=== PATIENT | female | born 2000 | race Caucasian/White ===

== ENCOUNTER 2022-06-14 08:00 | Outpatient (CLI) | payer MEDICAID ==
[2022-06-14 22:40] LABS: BACTERIAL VAGINOSIS DNA NEGATIVE (NEGATIVE); CANDIDA GROUP DNA NEGATIVE (NEGATIVE); CANDIDA KRUSEI DNA NEGATIVE (NEGATIVE); TRICHOMONAS VAGINALIS DNA NEGATIVE (NEGATIVE)
[2022-06-14 22:41] LABS: CANDIDA GLABRATA DNA NEGATIVE (NEGATIVE)
[2022-06-14 23:50] LABS: CHLAMYDIA TRACHOMATIS DNA NEGATIVE (NEGATIVE); NEISSERIA GONORRHOEAE DNA NEGATIVE (NEGATIVE)
== END 2022-06-14 23:59 | disposition home or self-care (01) ==
LOC: LAB.N 08:00
PROVIDERS: ATTEND Nurse Practitioner
DX: S30.202A Contusion of unspecified external genital organ, female, initial encounter (principal)
CPT/HCPCS: 81514; 87491; 87591; 87661

== ENCOUNTER 2022-06-16 09:00 | Outpatient (CLI) | payer MEDICAID ==
[2022-06-18 09:08] LABS: HCV AB <0.1 s/co ratio (0.0-0.9)
[2022-06-18 11:09] LABS: HIV SCREEN 4TH GENERATION Non Reactive (Non Reactive)
[2022-06-19 06:09] LABS: RPR Non Reactive (Non Reactive)
== END 2022-06-16 09:01 | disposition home or self-care (01) ==
LOC: LAB.N 09:00
PROVIDERS: ATTEND Nurse Practitioner
DX: S30.202A Contusion of unspecified external genital organ, female, initial encounter (principal)
CPT/HCPCS: 81599; 86592; 86694; 86695; 86696; 86803; 87389

== ENCOUNTER 2022-08-17 08:00 | Outpatient (CLI) | payer MEDICAID ==
[2022-08-17 21:08] LABS: BACTERIAL VAGINOSIS DNA POSITIVE (NEGATIVE); CANDIDA GLABRATA DNA NEGATIVE (NEGATIVE); CANDIDA GROUP DNA NEGATIVE (NEGATIVE); CANDIDA KRUSEI DNA NEGATIVE (NEGATIVE); TRICHOMONAS VAGINALIS DNA NEGATIVE (NEGATIVE)
[2022-08-17 22:26] LABS: CHLAMYDIA TRACHOMATIS DNA NEGATIVE (NEGATIVE); NEISSERIA GONORRHOEAE DNA NEGATIVE (NEGATIVE)
== END 2022-08-17 23:59 | disposition home or self-care (01) ==
LOC: LAB.N 08:00
PROVIDERS: ATTEND Nurse Practitioner
DX: N75.1 Abscess of Bartholin's gland (principal); Z11.3 Encounter for screening for infections with a predominantly sexual mode of transmission
CPT/HCPCS: 81514; 87070; 87205; 87491; 87591; 87661

== ENCOUNTER 2022-08-18 08:00 | Outpatient (CLI) | payer MEDICAID ==
[2022-08-20 05:07] LABS: HCV AB <0.1 s/co ratio (0.0-0.9)
[2022-08-20 09:08] LABS: HSV 1 IGG TYPE SPEC <0.91 index (0.00-0.90); HSV 2 IGG TYPE SPEC <0.91 index (0.00-0.90)
[2022-08-20 10:08] LABS: HIV SCREEN 4TH GENERATION Non Reactive (Non Reactive)
[2022-08-21 04:08] LABS: RPR Non Reactive (Non Reactive)
== END 2022-08-18 23:59 | disposition home or self-care (01) ==
LOC: LAB.N 08:00
PROVIDERS: ATTEND Nurse Practitioner
DX: Z11.3 Encounter for screening for infections with a predominantly sexual mode of transmission (principal)
CPT/HCPCS: 36415; 86592; 86695; 86696; 86803; 87389

== ENCOUNTER 2022-08-25 16:12 | Emergency (ER) | payer MEDICAID ==
[2022-08-25] MEDS ORDERED: LIDOCAINE 1%-EPI 1:100000 20 ML MDV SUBQ STA (19:56)
[2022-08-25] MEDS ORDERED: oxyCODONE/ACET 5/325 Prepack 4 PO STA (20:56)
--- NOTE | 2022-08-25 21:17 | ED Physician Documentation ---
PD HPI FEMALE - Stated complaint Stated Complaint: FEMALE /CYST - Chief complaint Chief Complaint: Wound - History obtained from History obtained from: Patient - Additional information Additional information: Patient is a 22-year-old presenting for evaluation of a left Bartholin's abscess which is been present for 2 weeks. She has been to the walk-in clinic twice and had it lanced twice, most recently a few days ago. She reports however the swelling has again increased.Patient states that with both attempts there was no probing of the abscess and they made a quick openings and that was it. She has not ever had a catheter placed into the abscess.She has been on Bactrim. She was [facility] but the referral was denied as they do not take her insurance.She denies a history of having this previously. She denies fevers, chest pain, difficulty breathing, abdominal pain, dysuria, vaginal bleeding or discharge. 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 Other Past Medical History: Bartholin cysts - Past Surgical History Past Surgical History: No - Allergies Allergies/Adverse Reactions: Allergies Allergy/AdvReac Type Severity Reaction Status Date / Time No Known Drug Allergies Allergy Verified 08/25/22 17:19 - Social History Does the pt smoke?: Yes Smoking Status: Current every day smoker Does the pt drink ETOH?: Yes ETOH Use: Wine, Beer, Liquor Does the pt have substance abuse?: No - Immunizations Immunizations are current?: Yes - POLST Patient has POLST: No PD ED PE NORMAL - General General: Alert and oriented X 3, No acute distress, Well developed/nourished - HEENT HEENT: Atraumatic - Neck Neck: Supple, no meningeal sign - Cardiac Cardiac: RRR, No murmur - Respiratory Respiratory: No respiratory distress, Clear bilaterally - Abdomen Abdomen: Soft, Non tender - Female 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, 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), Other (Left-sided Bartholin's abscess) - Derm Derm: Warm and dry Results - Vitals Vitals: Vital Signs - 24 hr 12/12/1208/25/22 08/25/22 17:15 19:17 20:11 Temperature 36.3 C L 37.2 C Heart Rate 66 83 82 Respiratory 16 16 16 Rate Blood Pressure 112/58 L 106/60 124/84 H O2 Saturation 100 100 100 08/25/22 21:23 Temperature 36.5 C Heart Rate 86 Respiratory 16 Rate Blood Pressure 132/79 H O2 Saturation 100 Oxygen O2 Source Room air Procedures - Abscess I&D (location) Left Bartholin's Preparation: Betadine, Lidocaine 1% Incision: Incised with scalpel, Purulent drainage, Loculations broken, Other Other: Pt tolerated well PD MEDICAL DECISION MAKING - ED course Complexity details: re-evaluated patient ED course: Patient with left Bartholin's abscess which has recurred despite 2 attempts at I&D at walk-in clinic.Patient gave verbal consent for drainage.Successful I&D with placement of Word catheter. Patient counseled to continue with her antibiotics and follow-up with either walk-in clinic or ER if she is not able to get in with gynecology as needed.Patient counseled on concerning symptoms to return for. Departure - Departure Disposition: 01 Home, Self Care Clinical Impression: Bartholin's gland abscess Condition: Stable Instructions: ED Bartholins Cyst IandD Comments: We have drained your Bartholin's abscess and placed a small catheter. This catheter may fall out on its own which is fine.If it is still present in 3 days then please return to the walk-in clinic or to the ER to have it removed and for recheck. If any worsening symptoms prior to that please consider being seen. Please continue with the antibiotic that you were started on. I given you a small amount of pain medication. Please use this only when needed. I would recommend a stool softener with it as it can be constipating. I would also recommend looking for a gynecology office that will accept your insurance for follow-up. I am prescribing a short course of narcotic pain medication for you. These are potentially dangerous and addictive medications that should be used carefully. These medications may constipate you. Take an taug-goj-bmasikl stool softener (docusate) twice daily with plenty of water while taking these medications. If you go 24 hours without a bowel movement, take [id number] miralax, per package instructions. Do not drink or drive while taking these medications. If you received narcotic or sedating medications while in the emergency department, do not drive for 24 hours. Store this medication in a safe, secure place and out of reach of children. It is a violation of federal law to give or sell this medication to another person or to use in a manner other than prescribed. The ED will not refill narcotic prescriptions, including prescriptions lost or stolen. To dispose of unwanted medications: 1. [facility] at [address] in [place] has a medication drop box. They accept prescription medications (in pill form) Saturday through Saturday 9:00 a.m. to 5:00 p.m. 2. [facility] [employer] accepts prescription medications (in pill form only) for disposal year round. Call for more information. 3. Contact the [facility] for the next [facility] sponsored prescription drug collection event. , [phone], or x7310; Note that many narcotic pain relievers also contain Tylenol/acetaminophen. Please ensure that your total dose of acetaminophen from all sources does not exceed 3 g (3000 mg) per day. Forms: Activity restrictions Discharge Date/Time: 08/25/22 21:23
[2022-08-25 21:24] VITALS: BP 132/79
== END 2022-08-25 21:23 | disposition home or self-care (01) ==
LOC: ED 16:12
DX: N75.1 Abscess of Bartholin's gland (principal); F17.200 Nicotine dependence, unspecified, uncomplicated
CPT/HCPCS: 56420

== ENCOUNTER 2022-08-29 11:44 | Emergency (ER) | payer MEDICAID ==
[2022-08-29 11:51] VITALS: BP 125/54
--- NOTE | 2022-08-29 14:39 | ED Physician Documentation ---
History of Present Illness - Stated complaint Stated Complaint: REMOVE CATHETER - Chief complaint Chief Complaint: General - History obtained from History obtained from: Patient - History of Present Illness Timing: Today Pain level max: 0 Pain level now: 0 - Additonal information Additional information: Patient is a 22-year-old female who had a Bartholin gland cyst drained 3 days ago and a Word catheter placed. She states that she is here to have the catheter removed. This is the third time she has had to have this drained. No fevers. No chills. No pain. Nothing makes it better or worse. 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 - Past Surgical History Past Surgical History: No - Present Medications Home Medications: Ambulatory Orders Medication Instructions Recorded Confirmed No Known Home Medications 08/29/22 08/29/22 - Allergies Allergies/Adverse Reactions: Allergies Allergy/AdvReac Type Severity Reaction Status Date / Time No Known Drug Allergies Allergy Verified 08/29/22 11:51 - Social History Does the pt smoke?: Yes Smoking Status: Current every day smoker Does the pt drink ETOH?: Yes Does the pt have substance abuse?: No - Immunizations Immunizations are current?: Yes - POLST Patient has POLST: No PD ED PE NORMAL - Vitals Vital signs reviewed: Yes - General General: Alert and oriented X 3, No acute distress - HEENT HEENT: Moist mucous membranes - Neck Neck: Supple, no meningeal sign - Respiratory Respiratory: No respiratory distress - Derm Derm: Warm and dry - Neuro Neuro: Alert and oriented X 3 Results - Vitals Vitals: Vital Signs - 24 hr 08/29/22 11:49 Temperature 36.5 C Heart Rate 73 Respiratory 14 Rate Blood Pressure 125/54 L O2 Saturation 100 Oxygen O2 Source Room air PD MEDICAL DECISION MAKING - ED course Complexity details: considered differential, d/w patient ED course: Patient declines visual inspection of the area. We discussed the importance of leaving the Word catheter in place for approximately 4 weeks to allow epithelialization to occur so that the abscess does not recur. She has already had this x3. Did offer removal, but informed her that this may cause recurrence which could lead to the need for surgery to correct the cyst. Patient elects to leave the word catheter in place at this time. Patient coun seled regarding signs and symptoms for which I believe and urgent re-evaluation would be necessary. Patient with good understanding of and agreement to plan and is comfortable going home at this time This document was made in part using voice recognition software. While efforts are made to proofread this document, sound alike and grammatical errors may occur. Departure - Departure Disposition: 01 Home, Self Care Clinical Impression: Bartholin's gland abscess Condition: Good Instructions: ED Bartholins Cyst IandD Follow-Up: Your,doctor in 1 week [Other] Comments: Usually the Word catheter is left in place for approximately 4 weeks to allow healing of the inner aspect of the Bartholin's gland so that the cyst does not recur. As we discussed alternatives are surgery to remove the cyst or marsu pialize the gland. We will leave the Word catheter in place for the next 4 weeks. Please return if you worsen. Please follow-up with gynecology for further care. Discharge Date/Time: 08/29/22 14:42
== END 2022-08-29 14:42 | disposition home or self-care (01) ==
LOC: ED 11:44
DX: Z46.6 Encounter for fitting and adjustment of urinary device (principal); N75.1 Abscess of Bartholin's gland; F17.200 Nicotine dependence, unspecified, uncomplicated
CPT/HCPCS: 99281; 99282

== ENCOUNTER 2023-04-01 14:30 | Outpatient (CLI) | payer MEDICAID ==
[2023-04-01 21:12] LABS: CHLAMYDIA TRACHOMATIS DNA NEGATIVE (NEGATIVE); NEISSERIA GONORRHOEAE DNA NEGATIVE (NEGATIVE)
[2023-04-02 00:27] LABS: BACTERIAL VAGINOSIS DNA POSITIVE (NEGATIVE); CANDIDA GLABRATA DNA NEGATIVE (NEGATIVE); CANDIDA GROUP DNA NEGATIVE (NEGATIVE); CANDIDA KRUSEI DNA NEGATIVE (NEGATIVE); TRICHOMONAS VAGINALIS DNA NEGATIVE (NEGATIVE)
[2023-04-03 03:10] LABS: HCV AB Non Reactive (Non Reactive); HIV SCREEN 4TH GENERATION Non Reactive (Non Reactive)
[2023-04-03 04:09] LABS: HSV 1 IGG TYPE SPEC <0.91 index (0.00-0.90); HSV 2 IGG TYPE SPEC <0.91 index (0.00-0.90)
[2023-04-03 08:10] LABS: RPR Non Reactive (Non Reactive)
== END 2023-04-01 14:45 | disposition home or self-care (01) ==
LOC: LAB.N 14:30
PROVIDERS: ATTEND Nurse Practitioner
DX: Z11.3 Encounter for screening for infections with a predominantly sexual mode of transmission (principal)
CPT/HCPCS: 81514; 86592; 86695; 86696; 86803; 87389; 87491; 87591; 87661

== ENCOUNTER 2024-03-07 08:00 | Outpatient (CLI) | payer MEDICAID | END 2024-03-07 23:59 | disposition home or self-care (01) | LOC: LAB.N 08:00 | PROVIDERS: ATTEND Nurse Practitioner | DX: N75.1 Abscess of Bartholin's gland (principal) | CPT/HCPCS: 87070; 87205 ==